=== PATIENT | male | born 1985 | race Hispanic/Latino ===

== ENCOUNTER 2023-03-29 14:42 | Emergency (ER) | payer BC ==
[~2023-03-29] VITALS: Ht 167.6 cm; Wt 63.5 kg
[2023-03-29 16:13] LABS: SARS-CoV-2, RNA, NAAT NEGATIVE SARS CoV-2 (NEGATIVE)
[2023-03-29 16:19] LABS: RAPID GROUP A STREP negative (NEGATIVE)
[2023-03-29 16:21] LABS: INFLUENZA TYPE A Negative For Type A (NEGATIVE); INFLUENZA TYPE B Negative For Type B (NEGATIVE)
[2023-03-29 18:22] VITALS: BP 118/64; PULSE 64; RESP 16; O2SAT 100
== END 2023-03-29 18:26 | disposition home or self-care (01) ==
LOC: EDH 14:42
DX: B34.9 Viral infection, unspecified (principal); Z20.822 Contact with and (suspected) exposure to COVID-19
CPT/HCPCS: 99283; 87635; 87880; 87804 ×2; C9803